=== PATIENT | female | born 1995 | race Caucasian/White ===

== ENCOUNTER 2017-09-23 07:22 | Emergency (ER) | payer SELFPAY ==
[2017-09-23 07:31] VITALS: TEMP 98.6; O2SAT 98
--- NOTE | 2017-09-23 07:43 | ED.PDOC ---
History of Present Illness - General Chief Complaint: Upper Extremity Injury Stated Complaint: L shoulder discomfort Time Seen by Provider: 09/23/17 07:39 Source: patient Exam Limitations: no limitations - History of Present Illness Initial Comments: Susan Brown 21 y/o female stated that she lifted multiple boxes at work weighing about 20-30 pounds 21 September 2017 at work and a day later had been sore on her left shoulder painful to raise left arm. Occurred: other - see hpi Pain - Upper Extremity: moderate: Shoulder, left Method of Injury: other - lifting Improving Factors: rest Worsening Factors: nothing Associated Symptoms: pain on movement Allergies/Adverse Reactions: Allergies NO KNOWN ALLERGY Allergy (Verified 09/23/17 07:30) Home Medications: Ambulatory Orders Baclofen 20 mg PO BID #14 tab 09/23/17 Diclofenac Sodium [Diclofenac Sodium Dr] 75 mg PO BID #14 tab 09/23/17 Review of Systems - Review of Systems Constitutional: States: no symptoms reported EENTM: States: no symptoms reported Musculoskeletal: States: joint pain Neurological: States: no symptoms reported All other Systems: Reviewed and Negative Past Medical History (General) - Patient Medical History Hx Stroke: No Hx Congestive Heart Failure: No Hx Diabetes: No Hx MRSA: No Surgical History: tonsillectomy - Vaccination History Hx Influenza Vaccination: No Hx Pneumococcal Vaccination: No - Social History Hx Tobacco Use: Yes - Female History Patient is a Female of Child Bearing Age (10 -59 yrs old): Yes Hx Last Menstrual Period: 07/17/17 - irregular periods Patient : No - Triage Comment ED Triage Comment: Pt reports she is amenorrheic Family Medical History - Family History Mother Family History: No Known Living Status: Still Living Physical Exam - Physical Exam General Appearance: Alert, Comfortable, No apparent distress Eyes, Ears, Nose, Throat Exam: normal ENT inspection Neck: non-tender, full range of motion, supple Cardiovascular/Respiratory: regular rate, rhythm, no M/R/G, normal peripheral pulses, normal breath sounds Abdominal Exam: non-tender, no organomegaly Back Exam: no CVA tenderness, no vertebral tenderness Shoulder Exam: bone tenderness - jeovany, limited ROM - painful ext/int rotation flexion/extension left shoulder, pain - left shoulder, soft tissue tenderness - left shoulder Elbow/Forearm Exam: non-tender, no evidence of injury Wrist Exam: non-tender, no evidence of injury Hand Exam: non-tender, no evidence of injury Neuro/Tendon: normal sensation, normal motor functions, normal tendon functions Mental Status: alert, oriented x 3 Skin Exam: normal color, warm/dry Progress - Progress Progress: 09/23/17 07:48 Vital Signs - 8 hr 09/23/17 07:26 Temperature 98.6 F Pulse Rate [ 83 Left Radial] Respiratory 20 Rate Blood Pressure 110/67 [Right Arm] O2 Sat by Pulse 98 Oximetry - EKG/XRAY/CT XRAY: shoulder left no fracture Departure - Departure Clinical Impression: Sprain of shoulder Qualifiers: Encounter type: initial encounter Shoulder sprain type: unspecified sprain Laterality: left Qualified Code(s): S43.402A - Unspecified sprain of left shoulder joint, initial encounter Time of Disposition: 08:09 Disposition: Discharge to Home or Self Care Condition: Good Departure Forms: ED Discharge - Pt. Copy, Patient Portal Self Enrollment Instructions: DI for Shoulder Sprain, Shoulder Sprain Prescriptions: Baclofen 20 mg PO BID #14 tab Diclofenac Sodium [Diclofenac Sodium Dr] 75 mg PO BID #14 tab Home Medications: Ambulatory Orders Baclofen 20 mg PO BID #14 tab 09/23/17 Diclofenac Sodium [Diclofenac Sodium Dr] 75 mg PO BID #14 tab 09/23/17 Additional Instructions: follow up with work comp 26 September 2017 for recheck and work release;May use ice pack to affected area 20 minutes 3 x a day during waking hours tato for 5 days;Use arm sling in am off at bedtime;No lifting with left upper extremity, climbing ladder until seen by workers comp
--- NOTE | 2017-09-23 08:02 | RAD ---
EXAM DESCRIPTION: Shoulder,Left 2 or More Views CLINICAL HISTORY: pain COMPARISON: None Available. TECHNIQUE: Two views of the left shoulder. FINDINGS: There is good internal and external rotation. There is no fracture or bone lesion. There are no significant degenerative changes observed. AC joint and glenohumeral articulation appear normal. IMPRESSION: 1. Normal left shoulder two views. Electronically signed by: Gurvinder Dorman MD 09/23/2017 8:01 AM CDT
[2017-09-23] MEDS ORDERED: KETOROLAC TROMETHAMINE INJ 30 MG/ML VIAL IM ONE (08:12)
[2017-09-23] MEDS ORDERED: ORPHENADRINE CITRATE 30 MG/ML AMP IM ONE (08:12)
[2017-09-23 09:08] VITALS: BP 106/82
== END 2017-09-23 08:47 | disposition home or self-care (01) ==
LOC: ER 07:22
DX: S43.402A Unspecified sprain of left shoulder joint, initial encounter (principal); X50.0XXA Overexertion from strenuous movement or load, initial encounter; Y92.89 Other specified places as the place of occurrence of the external cause; Y99.0 Civilian activity done for income or pay
CPT/HCPCS: 73030; J1885; J2360